=== PATIENT | male | born 1965 | race Hispanic/Latino ===

== ENCOUNTER 2016-05-29 20:30 | Emergency (ER) | payer SELFPAY ==
[2016-05-29] MEDS ORDERED: MOTRIN PO ONE (20:59)
--- NOTE | 2016-05-30 01:12 | Emergency Department Report ---
ED Lower Extremity HPI - General Chief Complaint: Wound/Laceration Stated Complaint: LACERATION TO TOE Time Seen by Provider: 05/30/16 01:11 Source: patient, family Mode of arrival: Ambulatory Limitations: No Limitations - History of Present Illness Initial Comments: Patient here reports that he has injury to left great toe. He said he was put in a bed together and the headboard fell on his left great toe. Reported male laceration and bleeding. Denies any fall or head injury. Pain to left great toe is 5 out of 10. His tetanus shot is up-to-date. Denies any numbness or tingling to toes. Patient has a history of diabetes. MD Complaint: foot injury (Left great toe injury) -: This evening Injury: Toes: Left ( great toe nail bed injury) Type of Injury: blunt Place: home Severity: moderate Severity scale (0 -10): 5 Improves With: cold therapy, other (dressing) Worsens With: weight bearing, movement, palpation Context: direct blow Associated Symptoms: swelling, ambulatory. denies: numbness, tingling Treatments Prior to Arrival: bandage - Related Data Home Medications Medication Instructions Recorded Confirmed Last Taken Fenofibrate 160 mg PO DAILY 05/29/16 05/29/16 Unknown Pantoprazole Sodium 40 mg PO DAILY 05/29/16 05/29/16 Unknown Pravastatin 10 mg PO DAILY 05/29/16 05/29/16 Unknown metFORMIN 1,000 mg PO DAILY 05/29/16 05/29/16 Unknown Previous Rx's Medication Instructions Recorded Last Taken Type Acetaminophen/Codeine 1 tab PO Q6H PRN #15 tab 05/30/16 Unknown Rx [Acetaminophen-Codeine #3 TAB] Allergies Allergy/AdvReac Type Severity Reaction Status Date / Time No Known Allergies Allergy Unverified 05/29/16 20:53 ED Review of Systems ROS: Stated complaint: LACERATION TO TOE Other details as noted in HPI Comment: All other systems reviewed and negative Constitutional: denies: chills, fever Respiratory: no symptoms reported Cardiovascular: denies: chest pain, palpitations, edema, syncope Gastrointestinal: denies: abdominal pain, nausea, vomiting Musculoskeletal: joint swelling, arthralgia (left great toe). denies: back pain Skin: denies: rash Neurological: abnormal gait (due to left great toe injury). denies: headache, numbness, paresthesias, confusion, vertigo ED Past Medical Hx - Past Medical History Previous Medical History?: Yes Hx Diabetes: Yes - Surgical History Past Surgical History?: Yes Hx Cholecystectomy: Yes Additional Surgical History: Right Ankle Surgery - Family History Family history: diabetes - Social History Smoking Status: Never Smoker Substance Use Type: None - Medications Home Medications: Home Medications Medication Instructions Recorded Confirmed Last Taken Type Fenofibrate 160 mg PO DAILY 05/29/16 05/29/16 Unknown History Pantoprazole Sodium 40 mg PO DAILY 05/29/16 05/29/16 Unknown History Pravastatin 10 mg PO DAILY 05/29/16 05/29/16 Unknown History metFORMIN 1,000 mg PO DAILY 05/29/16 05/29/16 Unknown History Acetaminophen/Codeine 1 tab PO Q6H PRN #15 tab 05/30/16 Unknown Rx [Acetaminophen-Codeine #3 TAB] ED Physical Exam - General Limitations: No Limitations General appearance: alert, in no apparent distress - Head Head exam: Present: atraumatic, normocephalic, normal inspection - Eye Eye exam: Present: normal appearance, PERRL, EOMI. Absent: periorbital swelling , periorbital tenderness Pupils: Present: normal accommodation - Neck Neck exam: Present: normal inspection, full ROM. Absent: tenderness, lymphadenopathy - Respiratory Respiratory exam: Present: normal lung sounds bilaterally. Absent: respiratory distress, chest wall tenderness - Cardiovascular Cardiovascular Exam: Present: regular rate, normal rhythm, normal heart sounds - GI/Abdominal GI/Abdominal exam: Present: soft, normal bowel sounds. Absent: distended, tenderness, guarding, rebound, rigid - Expanded Lower Extremity Exam Left Hip exam: Present: normal inspection, full ROM, pelvic stability. Absent: tenderness, swelling, abrasion, laceration, ecchymosis, deformity, crepidus, dislocation, erythema, external rotation, internal rotation, shortening Upper Leg exam: Present: normal inspection, full ROM. Absent: tenderness, swelling, abrasion, laceration, ecchymosis, deformity, crepidus, dislocation, erythema Knee exam: Present: normal inspection, full ROM, full knee extension. Absent: tenderness, swelling, abrasion, laceration, ecchymosis, deformity, crepidus, dislocation, erythema, effusion Lower Leg exam: Present: normal inspection, full ROM. Absent: tenderness, swelling, abrasion, laceration, ecchymosis, deformity, crepidus, dislocation, erythema, palpable cord, Joo's sign Ankle exam: Present: normal inspection, full ROM. Absent: tenderness, swelling , abrasion, laceration, ecchymosis, deformity, crepidus, dislocation, erythema Foot/Toe exam: Present: full ROM, tenderness (left great toe), swelling (left great toe), erythema (left great toe), nail avulsion (left great toe with nail avulsion). Absent: normal inspection, abrasion, laceration, ecchymosis, deformity, crepidus, dislocation, amputation, puncture wound, foreign body, calcaneal tenderness, tenderness at base of 5th metatarsal, subungual hematoma Neuro vascular tendon exam: Present: no vascular compromise. Absent: pulse deficit, abnormal cap refill, motor deficit, sensory deficit, tendon deficit, extremity cold to touch, pallor, abnormal 2-point discrimination, decreased fine /light touch, foot drop, peroneal nerve deficit, significant pain with passive ROM of distal joint Gait: Positive: observed and normal, observed and limited by pain - Back Exam Back exam: Present: normal inspection, full ROM. Absent: tenderness, CVA tenderness (R), CVA tenderness (L), muscle spasm, paraspinal tenderness, vertebral tenderness - Neurological Exam Neurological exam: Present: alert, oriented X3, abnormal gait (due to the left great toe contusion), reflexes normal. Absent: motor sensory deficit - Psychiatric Psychiatric exam: Present: normal affect, normal mood - Skin Skin exam: Present: warm, dry, erythema, abrasion - Expanded Skin Exam Expanded Type of lesion: Present: abrasion (wall abrasion) Distribution of rash: LLE (left great toe distal anterolateral at tuft) Description of rash: Present: tenderness, erythematous, swelling. Absent: discharge, fluctuant, indurated ED Course Vital Signs 05/29/16 05/29/16 05/30/16 20:44 22:15 01:32 Temperature 98.3 F Pulse Rate 75 Respiratory 18 18 18 Rate Blood Pressure 153/103 Blood Pressure 153/103 [Left] O2 Sat by Pulse 98 Oximetry 05/30/16 02:14 Temperature Pulse Rate Respiratory Rate Blood Pressure Blood Pressure 150/88 [Left] O2 Sat by Pulse Oximetry Vital Signs 05/29/16 05/29/16 05/30/16 20:44 22:15 01:32 Temperature 98.3 F Pulse Rate 75 Respiratory 18 18 18 Rate Blood Pressure 153/103 Blood Pressure 153/103 [Left] O2 Sat by Pulse 98 Oximetry 05/30/16 02:14 Temperature Pulse Rate Respiratory Rate Blood Pressure Blood Pressure 150/88 [Left] O2 Sat by Pulse Oximetry - Reevaluation(s) Reevaluation #1: 05/30/16 02:110 patient given Augmentin 875 mg in emergency room. Left foot soaked in normal saline and iodine. Cleansed and Neosporin ointment followed by dry gauze dressing placed the site. He was also given [place] 5/325 mg 2 tablets in emergency room for left great toe pain. ED Lower Extremity MDM - Radiology Data Radiology results: report reviewed X-ray of left great toe reveal no FX or dislocation. - Medical Decision Making ED course: She given [place] 5/325 2 tablets emergency room for left great toe pain. He was also given Augmentin 875 mg to start treatment for partial nail avulsion with abrasion to left great toe. Tetanus shot is up-to-date per patient. Discussed the patient that I'll refer him to a foot doctor in his discharge paperwork but patient said that he has on for and he sees 3-4 times a year due to his diabetes. I referred him to Dr. Flores and told them that he will need to call his doctor on Tuesday to schedule an appointment follow-up visit nail avulsion with abrasion and left great toe contusion. Patient was understanding of discharge instruction and discharged home with prescription for Tylenol No. 3. Discharged home with his . Critical care attestation.: If time is entered above; I have spent that time in minutes in the direct care of this critically ill patient, excluding procedure time. ED Disposition Clinical Impression: Arthralgia of left foot, Abrasion of foot or toe, left Contusion of great toe, left Qualifiers: Encounter type: initial encounter Damage to nail status: without damage Qualified Code(s): S90.112A - Contusion of left great toe without damage to nail , initial encounter Nail avulsion of toe Qualifiers: Encounter type: initial encounter Qualified Code(s): S91.209A - Unspecified open wound of unspecified toe(s) with damage to nail, initial encounter Disposition: DISCHARGED TO HOME OR SELFCARE Is pt being admited?: No Does the pt Need Aspirin: No Condition: Stable Instructions: Foot Contusion (ED), Abrasion (ED), Arthralgia (ED) Additional Instructions: You have an avulsion of the left great toeit means the nail bed has been partially removed due to trauma. 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 He was a diabetic and it was for infections to please make sure that you follow-up as soon as he can. Rest, ice, compress and elevate the area. Take medication as prescribed. Take antibiotic as prescribed and keep affected area clean and dry. Prescriptions: Acetaminophen/Codeine [Acetaminophen-Codeine #3 TAB] 1 tab PO Q6H PRN #15 tab PRN Reason: Pain Referrals: PRIMARY CARE, [Primary Care Provider] - 3-5 Days
[2016-05-30] MEDS ORDERED: TRIPLE ANTIBIOTIC TP ONE (01:13)
[2016-05-30] MEDS ORDERED: NORCO 5/325 PO ONE (01:13)
--- NOTE | 2016-05-30 01:28 | XRay Report ---
FINAL REPORT PROCEDURE: XR FOOT 3 LT TECHNIQUE: LEFT foot radiographs, AP, lateral, and oblique views. CPT 65783 HISTORY: Left great toe injury COMPARISON: No prior studies are available for comparison. FINDINGS: Fracture (s) and/or Dislocation(s): None . Alignment: Normal . Joint space(s): Mild narrowing of the joint spaces.. Soft tissues: Normal . Bone mineralization: Normal . Foreign bodies: None . Calcaneal spurring: Moderate spurring off calcaneus. IMPRESSION: No evidence of an acute fracture or dislocation. Mild arthritis..
[2016-05-30] MEDS ORDERED: AUGMENTIN 875 MG PO ONE (01:45)
[2016-05-30 02:15] VITALS: BP 150/88
== END 2016-05-30 02:46 | disposition home or self-care (01) ==
LOC: ED 20:30
DX: S91.202A Unspecified open wound of left great toe with damage to nail, initial encounter (principal); M79.672 Pain in left foot; E11.9 Type 2 diabetes mellitus without complications; Z90.49 Acquired absence of other specified parts of digestive tract; W20.8XXA Other cause of strike by thrown, projected or falling object, initial encounter; Y93.89 Activity, other specified; Y99.8 Other external cause status; Y92.098 Other place in other non-institutional residence as the place of occurrence of the external cause
CPT/HCPCS: A6250

== ENCOUNTER 2017-05-06 08:15 | Inpatient (IN) | payer OTHER ==
[2017-05-06] MEDS ORDERED: NACL 0.9% 1000 ML 1,000 ML IV ONE (09:06)
[2017-05-06 09:29] LABS: Basophils # (Auto) 0.1 K/mm3 (0.0-0.1); Basophils % (Auto) 1.4 % (0.0-1.8); Eosinophils # (Auto) 0.5 K/mm3 (0.0-0.4); Eosinophils % (Auto) 7.4 % (0.0-4.3); Hematocrit 40.4 % (35.5-45.6); Hemoglobin 13.8 gm/dl (11.8-15.2); Lymphocytes # (Auto) 1.9 K/mm3 (1.2-5.4); Lymphocytes % (Auto) 27.5 % (13.4-35.0); Mean Corpuscular HGB Conc 34 % (32-34); Mean Corpuscular Hemoglobin 29 pg (28-32); Mean Corpuscular Volume 84 fl (84-94); Monocytes # (Auto) 0.9 K/mm3 (0.0-0.8); Monocytes % (Auto) 13.2 % (0.0-7.3); Platelet Count 408 K/mm3 (140-440); Red Cell Distribution Width 13.6 % (13.2-15.2)
--- NOTE | 2017-05-06 09:32 | XRay Report ---
AP CHEST: HISTORY: Hypertension AP view of the chest demonstrates a normal mediastinal and cardiac contour with clear lungs and normal bony and soft tissue structures. IMPRESSION: Unremarkable AP chest.
--- NOTE | 2017-05-06 09:33 | XRay Report ---
RIGHT KNEE, 2 VIEWS History: Osteomyelitis, postoperative patient. Findings: No comparison. Right knee arthroplasty changes are identified. There is no evidence for loosening or infection of the prosthesis. No fracture or malalignment. There is mild diffuse subcutaneous edema which could be related to a cellulitis. Focal ulceration is suggested anterior and inferior to the patella. Impression: Soft tissue findings as described. Stable appearance of the right knee prosthesis.
[2017-05-06 09:46] LABS: Alanine Aminotransferase 18 units/L (7-56); Albumin 3.8 g/dL (3.9-5); BUN/Creatinine Ratio 19; Blood Urea Nitrogen 19 mg/dL (9-20); Calcium 9.4 mg/dL (8.4-10.2); Hemolysis Index 9
[2017-05-06 09:48] LABS: Bilirubin,Direct < 0.2 mg/dL (0-0.2)
[2017-05-06 09:52] LABS: INR 0.9 (0.87-1.13)
[2017-05-06 09:53] LABS: Partial Thromboplastin Time 32.6 Sec. (24.2-36.6)
[2017-05-06 10:02] LABS: Erythrocyte Sedimentation Rate 47 mm/Hr (0-20)
[2017-05-06 10:13] LABS: Bilirubin,Urine NEG (Negative); Blood,Urine NEG (Negative); Color,Urine Yellow (Yellow); Mucus,Urine FEW /HPF; Protein,Urine <15 mg/dL mg/dL (Negative); Urobilinogen,Urine < 2.0 mg/dL (<2.0)
--- NOTE | 2017-05-06 10:21 | Emergency Department Report ---
ED General Adult HPI - General Chief complaint: Extremity Injury, Lower Stated complaint: KNEE PAIN Time Seen by Provider: 05/06/17 08:55 Source: patient Mode of arrival: Ambulatory Limitations: No Limitations - History of Present Illness Initial comments: I received a call from the orthopedist concerning this patient this morning. He is preop for a debridement or washout procedure this afternoon. However, the orthopedist tells me that he is developing drainage from his knee and requires some staging in the emergency department. The patient is currently on vancomycin and Zosyn via PICC line since his total knee replacement in February. He arrives with a home health nurse I believe. He states that the green drainage started on Tuesday. The home health nurse stated that he also had some last week. The orthopedist is requesting that the patient be admitted by the hospitalist service for medical management. -: week(s), month(s) Location: right, lower extremity Severity scale (0 -10): 0 Quality: other (drainage not currently complaining of pain) Consistency: intermittent Improves with: none Worsens with: none Associated Symptoms: denies other symptoms, other (increasing redness of the anterior aspect of the knee) - Related Data Home Medications Medication Instructions Recorded Confirmed Last Taken Fenofibrate 160 mg PO DAILY 05/29/16 05/29/16 Unknown Pantoprazole Sodium 40 mg PO DAILY 05/29/16 05/29/16 Unknown Pravastatin 10 mg PO DAILY 05/29/16 05/29/16 Unknown metFORMIN 1,000 mg PO DAILY 05/29/16 05/29/16 Unknown Previous Rx's Medication Instructions Recorded Last Taken Type Acetaminophen/Codeine [Tylenol 1 tab PO Q6H PRN #15 tab 05/30/16 Unknown Rx /Codeine # 3 tab] Allergies Allergy/AdvReac Type Severity Reaction Status Date / Time codeine Allergy Unknown Verified 05/06/17 08:20 ED Review of Systems ROS: Stated complaint: KNEE PAIN Other details as noted in HPI Constitutional: denies: chills, fever Eyes: denies: eye pain, eye discharge, vision change ENT: denies: ear pain, throat pain Respiratory: denies: cough, shortness of breath, wheezing Cardiovascular: denies: chest pain, palpitations Endocrine: no symptoms reported Gastrointestinal: denies: abdominal pain, nausea, diarrhea Genitourinary: denies: urgency, dysuria Musculoskeletal: denies: back pain, joint swelling, arthralgia Skin: as per HPI, change in color, other. denies: rash, lesions Neurological: denies: headache, weakness, paresthesias Psychiatric: denies: anxiety, depression Hematological/Lymphatic: denies: easy bleeding, easy bruising ED Past Medical Hx - Past Medical History Hx Diabetes: Yes - Surgical History Hx Cholecystectomy: Yes Additional Surgical History: Right Ankle Surgery - Social History Smoking Status: Never Smoker Substance Use Type: None - Medications Home Medications: Home Medications Medication Instructions Recorded Confirmed Last Taken Type Fenofibrate 160 mg PO DAILY 05/29/16 05/29/16 Unknown History Pantoprazole Sodium 40 mg PO DAILY 05/29/16 05/29/16 Unknown History Pravastatin 10 mg PO DAILY 05/29/16 05/29/16 Unknown History metFORMIN 1,000 mg PO DAILY 05/29/16 05/29/16 Unknown History Acetaminophen/Codeine [Tylenol 1 tab PO Q6H PRN #15 tab 05/30/16 Unknown Rx /Codeine # 3 tab] ED Physical Exam - General Limitations: No Limitations General appearance: alert, in no apparent distress, obese - Head Head exam: Present: atraumatic, normocephalic - Eye Eye exam: Present: normal appearance. Absent: scleral icterus - ENT ENT exam: Present: mucous membranes moist - Neck Neck exam: Present: normal inspection. Absent: meningismus - Respiratory Respiratory exam: Present: normal lung sounds bilaterally. Absent: respiratory distress - Cardiovascular Cardiovascular Exam: Present: regular rate, normal rhythm. Absent: systolic murmur, diastolic murmur, rubs, gallop - GI/Abdominal GI/Abdominal exam: Present: soft, normal bowel sounds. Absent: distended, tenderness, guarding, rebound, rigid - Rectal Rectal exam: Present: deferred - Extremities Exam Extremities exam: Present: other (postsurgical changes. There is erythema and induration anterior knee. There is no active drainage at this juncture. However there is a gauze which shows evidence of some apparently serosanguineous -type material. I don't see any fluctuance or purulence.). Absent: calf tenderness - Back Exam Back exam: Present: normal inspection. Absent: CVA tenderness (R), CVA tenderness (L) - Neurological Exam Neurological exam: Present: alert, oriented X3, CN II-XII intact. Absent: motor sensory deficit - Psychiatric Psychiatric exam: Present: normal affect, normal mood - Skin Skin exam: Present: warm, dry, intact, normal color. Absent: rash ED Course Vital Signs 05/06/17 05/06/17 05/06/17 08:20 08:53 08:54 Temperature 97.5 F L 97.8 F Pulse Rate 92 H 99 H Respiratory 12 15 Rate Blood Pressure 141/72 Blood Pressure 128/59 [Left] O2 Sat by Pulse 96 97 Oximetry 05/06/17 05/06/17 05/06/17 09:00 09:15 09:30 Temperature Pulse Rate 91 H 84 88 Respiratory 13 12 19 Rate Blood Pressure 119/72 129/72 119/68 Blood Pressure [Left] O2 Sat by Pulse 97 97 96 Oximetry 05/06/17 05/06/17 09:45 10:01 Temperature Pulse Rate 88 91 H Respiratory 24 17 Rate Blood Pressure 122/59 128/68 Blood Pressure [Left] O2 Sat by Pulse 97 97 Oximetry - Reevaluation(s) Reevaluation #1: Discussed with Dr. Chavez. The patient will be admitted to the hospitalist service. Consult orthopedist. 05/06/17 10:28 ED Medical Decision Making - Lab Data Result diagrams: 05/06/17 09:19 05/06/17 09:19 Laboratory Results - last 24 hr 05/06/17 05/06/17 05/06/17 09:19 09:19 09:19 WBC 6.8 RBC 4.80 Hgb 13.8 Hct 40.4 MCV 84 MCH 29 MCHC 34 RDW 13.6 Plt Count 408 Lymph % (Auto) 27.5 [place] % (Auto) 13.2 H Eos % (Auto) 7.4 H Baso % (Auto) 1.4 Lymph # 1.9 [place] # 0.9 H Eos # 0.5 H Baso # 0.1 Seg Neutrophils % 50.5 Seg Neutrophils # 3.4 ESR 47 PT 12.6 INR 0.90 APTT 32.6 VBG pH Sodium 136 L Potassium 4.0 Chloride 97.1 L Carbon Dioxide 24 Anion Gap 19 BUN 19 Creatinine 1.0 Estimated GFR > 60 BUN/Creatinine Ratio 19 Glucose 138 H Ketones Quantitative Lactic Acid Calcium 9.4 Total Bilirubin 0.30 Direct Bilirubin < 0.2 AST 20 ALT 18 Alkaline Phosphatase 66 C-Reactive Protein 1.30 Total Protein 7.6 Albumin 3.8 L Albumin/Globulin Ratio 1.0 Urine Color Urine Turbidity Urine pH Ur Specific [place] Urine Protein Urine Glucose (UA) Urine Ketones Urine Blood Urine Nitrite Urine Bilirubin Urine Urobilinogen Ur Leukocyte Esterase Urine WBC (Auto) Urine RBC (Auto) Urine Mucus 05/06/17 05/06/17 05/06/17 09:19 09:19 09:19 WBC RBC Hgb Hct MCV MCH MCHC RDW Plt Count Lymph % (Auto) [place] % (Auto) Eos % (Auto) Baso % (Auto) Lymph # [place] # Eos # Baso # Seg Neutrophils % Seg Neutrophils # ESR PT INR APTT VBG pH 7.395 Sodium Potassium Chloride Carbon Dioxide Anion Gap BUN Creatinine Estimated GFR BUN/Creatinine Ratio Glucose Ketones Quantitative Negative Lactic Acid 0.80 Calcium Total Bilirubin Direct Bilirubin AST ALT Alkaline Phosphatase C-Reactive Protein Total Protein Albumin Albumin/Globulin Ratio Urine Color Urine Turbidity Urine pH Ur Specific [place] Urine Protein Urine Glucose (UA) Urine Ketones Urine Blood Urine Nitrite Urine Bilirubin Urine Urobilinogen Ur Leukocyte Esterase Urine WBC (Auto) Urine RBC (Auto) Urine Mucus 05/06/17 10:00 WBC RBC Hgb Hct MCV MCH MCHC RDW Plt Count Lymph % (Auto) [place] % (Auto) Eos % (Auto) Baso % (Auto) Lymph # [place] # Eos # Baso # Seg Neutrophils % Seg Neutrophils # ESR PT INR APTT VBG pH Sodium Potassium Chloride Carbon Dioxide Anion Gap BUN Creatinine Estimated GFR BUN/Creatinine Ratio Glucose Ketones Quantitative Lactic Acid Calcium Total Bilirubin Direct Bilirubin AST ALT Alkaline Phosphatase C-Reactive Protein Total Protein Albumin Albumin/Globulin Ratio Urine Color Yellow Urine Turbidity Clear Urine pH 6.0 Ur Specific [place] 1.016 Urine Protein <15 mg/dl Urine Glucose (UA) Neg Urine Ketones Neg Urine Blood Neg Urine Nitrite Neg Urine Bilirubin Neg Urine Urobilinogen < 2.0 Ur Leukocyte Esterase Neg Urine WBC (Auto) 1.0 Urine RBC (Auto) 1.0 Urine Mucus Few - EKG Data -: EKG Interpreted by [place] EKG shows normal: sinus rhythm, axis, intervals, QRS complexes, ST-T waves - EKG Data Interpretation: other (low voltage poor R-wave progression possibly related to hepatitis. Slightly prolonged [place] interval first degree AV block) - Radiology Data Radiology results: report reviewed Critical care attestation.: If time is entered above; I have spent that time in minutes in the direct care of this critically ill patient, excluding procedure time. ED Disposition Clinical Impression: Cellulitis of right knee, Insulin dependent diabetes mellitus Disposition: OP ADMIT IP TO THIS HOSP Is pt being admited?: Yes Does the pt Need Aspirin: No (hold now patient nothing by mouth for surgery) Condition: Stable Instructions: Diabetes Mellitus Type 2 in Adults (ED) Referrals: PRIMARY CARE, [Primary Care Provider] - 3-5 Days Time of Disposition: 10:31
[2017-05-06] MEDS ORDERED: ZOFRAN IV PRN (10:42)
--- NOTE | 2017-05-06 10:42 | Anesthesia Day of Surgery ---
Anesthesia Day of Surgery - Day of Surgery Patient Examined: Yes Patient H&P Reviewed: Yes Patient is NPO: Yes
--- NOTE | 2017-05-06 10:42 | Anesthesia Consultation ---
Anesthesia Consult and Med Hx - Airway Anesthetic Teeth Evaluation: Good ROM Head & Neck: Adequate Mental/Hyoid Distance: Adequate Mallampati Class: Class I - Pulmonary Exam CTA: Yes - Cardiac Exam Cardiac Exam: RRR - Pre-Operative Health Status ASA Pre-Surgery Classification: ASA3 Proposed Anesthetic Plan: General
[2017-05-06] MEDS ORDERED: NACL 0.9% 1000 ML 1,000 ML IV SCH (11:00)
[2017-05-06] MEDS ORDERED: NACL 0.9% 1000 ML 1,000 ML ONE (11:38)
[2017-05-06] MEDS ORDERED: VANCOMYCIN/NS 1 GM/250 ML 1 GM/250 ML BAG IV SCH ×2 (12:00→14:00)
[2017-05-06] MEDS ORDERED: VANCOMYCIN/0.45 NS 1 GM/250 ML 1 GM/250 ML BAG IV NR (12:00)
[2017-05-06] MEDS ORDERED: DILAUDID ONE ×2 (12:01→14:44)
[2017-05-06] MEDS ORDERED: DIPRIVAN 10 MG/ML IV ONE (12:01)
[2017-05-06] MEDS ORDERED: XYLOCAINE MPF 2% ONE (12:03)
[2017-05-06] MEDS ORDERED: REGLAN ONE (12:49)
[2017-05-06] MEDS ORDERED: ZOFRAN ONE (12:49)
[2017-05-06] MEDS ORDERED: SUBLIMAZE ONE (12:50)
[2017-05-06] MEDS ORDERED: ULTRAM PO PRN (13:49)
[2017-05-06] MEDS ORDERED: ZOSYN/NS 3.375GM/50ML 3.375 GM/50 ML BAG IV SCH (14:00)
[2017-05-06] MEDS: DILAUDID IV PRN ×2 (14:44→15:00)
[2017-05-06] MEDS ORDERED: D50W (25GM) Syringe IV PRN (15:56)
--- NOTE | 2017-05-06 15:59 | History and Physical Report ---
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 Freed, stating he needs to come here to do surgery for knee infection. Patient has noticed more draining, tenderness, constant moderately intense pain right knee over last couple days without aggravating or relieving factors. Past medical history: The patient is currently on vancomycin and Zosyn via PICC line since his total knee replacement in February. He arrives with a home health nurse I believe. He states that the green drainage started on Tuesday. The home health nurse stated that he also had some last week. The orthopedist is requesting that the patient be admitted by the hospitalist service for medical management. Past medical history: As HPI, also DKA in the past, buttock infection with abscess Past surgical history: Cholecystectomy last year, right ankle bone spur removal , right Botox abscess drained and the right total knee replacement Social history: He denies any tobacco use or alcohol abuse or drug abuse Family history: Mother and father had diabetes mellitus they are ROS: Constitutional: denies: fever ENT: denies: throat or neck pain Respiratory: denies: cough, shortness of breath Cardiovascular: denies: chest pain Endocrine: denies unexplained weight loss or gain Gastrointestinal: denies: abdominal pain, nausea Genitourinary: denies: dysuria Rectal: denies no incontinence, no bleeding, no itching, no discharge Musculoskeletal: Positive swelling, myaglia, muscle weakness Skin: denies: rash Neurological: denies: headache Hematological/Lymphatic: denies: easy bleeding or easy bruising Allergic/Immunologic: no urticaria, no allergic rhinitis, no anaphylaxis Psych: denies sadness or hopelessness, SI/HI Medications and Allergies Allergies Allergy/AdvReac Type Severity Reaction Status Date / Time codeine Allergy Unknown Verified 05/06/17 08:20 Home Medications Medication Instructions Recorded Confirmed Last Taken Type Fenofibrate 160 mg PO DAILY 05/29/16 05/29/16 05/05/17 History Pantoprazole Sodium 40 mg PO DAILY 05/29/16 05/29/16 05/05/17 History Pravastatin 10 mg PO DAILY 05/29/16 05/29/16 05/05/17 History metFORMIN 1,000 mg PO DAILY 05/29/16 05/29/16 05/05/17 History RX: Acetaminophen/Codeine [Tylenol 1 tab PO Q6H PRN #15 tab 05/30/16 Unknown Rx /Codeine # 3 tab] Lisinopril [Prinivil] 10 mg PO DAILY 05/06/17 05/06/17 05/05/17 History RX: Pioglitazone [Actos] 15 mg 05/06/17 05/05/17 History glipiZIDE [Glipizide] 10 mg PO BID 05/06/17 05/06/17 05/05/17 History Active Meds: Active Medications Aspirin (Ecotrin) 325 mg PO BID@0800,2000 [facility] Celecoxib (Celebrex) 200 mg PO BID [facility] Dextrose (D50w (25gm) Syringe) 50 ml IV PRN PRN PRN Reason: Hypoglycemia Piperacillin Sod/Tazobactam Sod (Zosyn/Ns 4.5gm/100ml) 4.5 gm in 100 mls @ 100 mls/hr IV Q8H [facility] Vancomycin HCl 1,500 mg/ (Sodium Chloride) 515 mls @ 333.333 mls/hr IV Q12H [facility] Insulin Human Lispro (Humalog) 0 unit SUB-Q ACHS [facility]; Protocol Morphine Sulfate (Morphine) 4 mg IV Q4H PRN PRN Reason: Pain , Severe (7-10) Pregabalin (Lyrica) 75 mg PO BID [facility] Tramadol HCl (Ultram) 50 mg PO Q6H PRN PRN Reason: Pain, Moderate (4-6) Vancomycin HCl (Vancomycin Pharmacy To Dose) 1 each IV PKCONSULT [facility]; Protocol Exam - Physical Exam Narrative exam: GEN: WDWN, NAD, AWAKE, ALERT, ORIENTATED 3 HEENT: NCAT, EOMI, PERRL, OP Clear NECK: supple, no adenopathy, no thyromegaly, no JVD CVS/HEART: RRR, NORMAL S1S2, pulses present bilaterally CHEST/LUNGS: CTA B, Symmetrical chest expansion, good air entry bilaterally GI/Abdomen: soft, NTND, good bowel sounds, no guarding or rebound /Bladder: no suprapubic tenderness, no CVA or paraspinal tenderness EXT/Skin: right knee surg dsg clean dry intact MSK: FROM x 3 except right leg in an immobilizer Neuro: CN 2-12 grossly intact, except hearing and speech, no new focal deficits Psych: calm - Constitutional Vitals: Temp Pulse Resp BP Pulse Ox 97.8 F 90 15 143/68 96 05/06/17 14:15 05/06/17 14:25 05/06/17 15:00 05/06/17 14:25 05/06/17 14:25 Results - Labs CBC & Chem 7: 05/06/17 09:19 05/06/17 09:19 Labs: Abnormal lab results 05/06/17 05/06/17 05/06/17 Range/Units 09:19 09:19 09:58 [place] % (Auto) 13.2 H (0.0-7.3) % Eos % (Auto) 7.4 H (0.0-4.3) % [place] # 0.9 H (0.0-0.8) K/mm3 Eos # 0.5 H (0.0-0.4) K/mm3 Sodium 136 L (137-145) mmol/L Chloride 97.1 L (98-107) mmol/L Glucose 138 H (75-100) mg/dL POC Glucose 109 H (70-105) Albumin 3.8 L (3.9-5) g/dL 05/06/17 Range/Units 14:45 [place] % (Auto) (0.0-7.3) % Eos % (Auto) (0.0-4.3) % [place] # (0.0-0.8) K/mm3 Eos # (0.0-0.4) K/mm3 Sodium (137-145) mmol/L Chloride (98-107) mmol/L Glucose (75-100) mg/dL POC Glucose 125 H (70-105) Albumin (3.9-5) g/dL Assessment and Plan Patient is a 51-year-old man with a history of Type 2 insulin-dependent diabetes mellitus,, 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 Freed to come here for surgery -Right knee septic arthritis s/p washout: continue iv vancomycin, surgical ctx -DM type 2: ssi, start diet -HTM: monitor closely, low salt diet
[2017-05-06] MEDS ORDERED: VANCOMYCIN PHARMACY TO DOSE IV SCH (16:00)
[2017-05-06] MEDS: MORPHINE IV PRN ×2 (16:43→22:48)
[2017-05-06] MEDS: ZOSYN/NS 4.5GM/100ML 4.5 GM/100 ML VIAL IV SCH (16:43)
[2017-05-06] MEDS: HumaLOG SUB-Q SCH ×2 (16:49→22:49)
--- NOTE | 2017-05-06 17:41 | Post Anesthesia Evaluation ---
- Post Anesthesia Evaluation Patient Participated: Yes Airway Patent: Yes Stable Respiratory Function: Yes Nausea/Vomiting: No Temp > 96.8F: Yes Pain Manageable: Yes Adequeate Hydration: Yes Anesthesia Complications: No Block Receding Appropriately: Not Applicable
[2017-05-06] MEDS ORDERED: TORADOL IV SCH (18:00)
--- NOTE | 2017-05-06 19:25 | Operative Report ---
SURGEON: Xavier Mora M.D. ENERGY PROJECT ENGINEER: Kelvin Bhatti, operative tech. PREOPERATIVE DIAGNOSIS: Wound drainage of lower part of the knee, status post total knee replacement, left side. POSTOPERATIVE DIAGNOSIS: Wound drainage of lower part of the knee, status post total knee replacement, left side, with minimal hematoma collection on the proximal medial tibia. PROCEDURES PERFORMED: Open exploration, right knee, with irrigation, debridement, and wound closure. BLOOD LOSS: Minimal. COMPLICATIONS: None. SPECIMEN: Removed tissue for culture and sensitivity, culture swab for Gram stain, culture and sensitivity, draining sinus tissue for pathology. BRIEF HISTORY: The patient had a knee replacement for severe advanced arthritis, status post failed conservative treatment. He had severe advanced osteoarthritis, extremely advanced, extremely deformed, and stiff knee with hardware in situ, had a total knee replacement. We did great with some postoperatively. He had some redness and cellulitis with some minimal bruise on the lower part of the knee. Eventually a day ago, he started having minimal drainage. He was on IV antibiotics. The drainage persisted and then decided to have an open wound exploration and procedure. The risks, benefit discussed, no guarantee expressed. All the questions were answered, informed consent obtained. DETAILS OF THE OPERATIVE REPORT: The patient was taken to the operating room. After smooth general endotracheal anesthesia, all the bony points were carefully padded, placed supine on the operating table. Thigh tourniquet was placed. Right knee and right lower extremity prepped and draped in sterile fashion. Leg elevated, tourniquet inflated to 350 mmHg. No Esmarch was used. The patient is on the scheduled antibiotic already, but he also had IV vancomycin before the procedure, [address] he had two small draining punctured wound and a small draining area was opened and draining area was excised, and the tissue was sent for pathology. The incision was carried down deep to subcutaneous tissue and the fascia was exposed. There was minimal weak soft tissue on the lower part of the incision. At the level of proximal medial tibia, there was significant amount of healing already happened. At the level of proximal medial tibial plateau, there was a small area of fluid collection and space in the proximal medial tibia where he had the previous surgery, had a previous interference screw was placed. No pus was delivered. There was no infected looking tissue as such; however, some of the tissues were friable and were sent for culture and sensitivity. Total washing and irrigation was performed. The wound was explored a little more proximally to see if there is any communication to the joint. We noticed that there was no intra-articular communication. The arthrotomy was completely healed and there was a soft tissue and all the way sealed all the way proximal medial tibia and there was no intraarticular communication. There just a small area of on the proximal medial tibia in the region where he had previous ACL tibial screw surgery where there was hardly much tissue adhered to the bone. So, thorough washing was performed. Curettes were used to do thorough debridement. Washing was performed with antibiotic normal saline about five the 2 to 5 liters and also, thorough washing was performed with a liter and a half to 2 liters of Clorpactin. Following that, a 1000 mL bag of normal saline was used to thorough wash it. Tourniquet released. Hemostasis was achieved. No active bleeder as such. Closure was commenced. There was no need to go intraarticularly as there was no rent in the capsule. There was no rent or no communication at all to the intra-articular joint. Thorough washing was performed and the closure was commenced and closed with #1 PDS and 0 PDS and subcutaneous tissues closed with 2-0 PDS. Distally, the wound was closed with #2 nylon in a horizontal mattress fashion and closure was proximally, it was also commenced with Monocryl where it was good approximation. This skin on the lower end had little bruised up and from the past and that is why we used a stitch on the lower end to get a better eversion of the margin. The patient tolerated the procedure well. Dressing was done with 4 x 4s, ABD, Kerlix, and Emery wrap. A knee immobilizer applied. The patient tolerated the procedure, returned to the recovery room in stable condition. Sponge and needle count was correct. JOB# [id number] SK/MINH
[2017-05-06] MEDS: ECOTRIN PO SCH (19:59)
[2017-05-06] MEDS: LYRICA PO SCH (22:50)
[2017-05-06] MEDS: VANCOMYCIN 1,500 MG in NACL 0.9% 500 ML 500 ML IV SCH (23:00)
[2017-05-07] MEDS: ZOSYN/NS 4.5GM/100ML 4.5 GM/100 ML VIAL IV SCH ×3 (00:51→16:39)
[2017-05-07] MEDS: MORPHINE IV PRN ×3 (05:23→19:45)
[2017-05-07 06:19] LABS: Hematocrit 35.9 % (35.5-45.6); Hemoglobin 12.5 gm/dl (11.8-15.2); Mean Corpuscular HGB Conc 35 % (32-34); Mean Corpuscular Hemoglobin 29 pg (28-32); Mean Corpuscular Volume 84 fl (84-94); Platelet Count 390 K/mm3 (140-440); Red Blood Count 4.25 M/mm3 (3.65-5.03); Red Cell Distribution Width 13.9 % (13.2-15.2)
[2017-05-07 06:34] LABS: BUN/Creatinine Ratio 15; Blood Urea Nitrogen 17 mg/dL (9-20); Calcium 8.6 mg/dL (8.4-10.2); Hemolysis Index 4
[2017-05-07] MEDS: HumaLOG SUB-Q SCH ×4 (08:38→22:54)
[2017-05-07] MEDS: ECOTRIN PO SCH ×2 (09:01→19:44)
[2017-05-07] MEDS: LYRICA PO SCH ×2 (10:25→21:12)
[2017-05-07] MEDS: VANCOMYCIN 1,500 MG in NACL 0.9% 500 ML 500 ML IV SCH ×2 (13:38→23:08)
--- NOTE | 2017-05-07 13:51 | Progress Note ---
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 Freed to come here for surgery -Right knee septic arthritis s/p washout: continue iv vancomycin, surgical ctx -DM type 2: ssi, start diet -HTM: monitor closely, low salt diet Awaiting cultures, continue iv vancomycin with monitoring History Interval history: Patient was seen and examined. Follow-up on current diagnosis. Overnight uneventful. Patient denies any chest pain, shortness breath, nausea/vomiting or severe headaches. Imaging, nursing note, chart, labs and old chart reviewed. Discussed with patient. Hospitalist Physical - Physical exam Narrative exam: GEN: WDWN, NAD, AWAKE, ALERT, ORIENTATED 3 HEENT: NCAT, EOMI, PERRL, OP Clear NECK: supple, no adenopathy, no thyromegaly, no JVD CVS/HEART: RRR, NORMAL S1S2, pulses present bilaterally CHEST/LUNGS: CTA B, Symmetrical chest expansion, good air entry bilaterally GI/Abdomen: soft, NTND, good bowel sounds, no guarding or rebound /Bladder: no suprapubic tenderness, no CVA or paraspinal tenderness EXT/Skin: right knee surg dsg clean dry intact MSK: FROM x 3 except right leg in an immobilizer Neuro: CN 2-12 grossly intact, except hearing and speech, no new focal deficits Psych: calm - Constitutional Vitals: Temp Pulse Resp BP Pulse Ox 98.1 F 83 20 102/40 95 05/07/17 07:42 05/07/17 07:42 05/07/17 07:42 05/07/17 07:42 05/07/17 07:42 Results - Labs CBC & Chem 7: 05/07/17 Unknown 05/07/17 Unknown Labs: Laboratory Last Values WBC 6.1 K/mm3 (4.5-11.0) 05/07/17 Unknown RBC 4.25 M/mm3 (3.65-5.03) 05/07/17 Unknown Hgb 12.5 gm/dl (11.8-15.2) 05/07/17 Unknown Hct 35.9 % (35.5-45.6) 05/07/17 Unknown MCV 84 fl (84-94) 05/07/17 Unknown MCH 29 pg (28-32) 05/07/17 Unknown MCHC 35 % (32-34) H 05/07/17 Unknown RDW 13.9 % (13.2-15.2) 05/07/17 Unknown Plt Count 390 K/mm3 (140-440) 05/07/17 Unknown Lymph % (Auto) 27.5 % (13.4-35.0) 05/06/17 09:19 [place] % (Auto) 13.2 % (0.0-7.3) H 05/06/17 09:19 Eos % (Auto) 7.4 % (0.0-4.3) H 05/06/17 09:19 Baso % (Auto) 1.4 % (0.0-1.8) 05/06/17 09:19 Lymph # 1.9 K/mm3 (1.2-5.4) 05/06/17 09:19 [place] # 0.9 K/mm3 (0.0-0.8) H 05/06/17 09:19 Eos # 0.5 K/mm3 (0.0-0.4) H 05/06/17 09:19 Baso # 0.1 K/mm3 (0.0-0.1) 05/06/17 09:19 Seg Neutrophils % 50.5 % (40.0-70.0) 05/06/17 09:19 Seg Neutrophils # 3.4 K/mm3 (1.8-7.7) 05/06/17 09:19 ESR 47 mm/Hr (0-20) 05/06/17 09:19 PT 12.6 Sec. (12.2-14.9) 05/06/17 09:19 INR 0.90 (0.87-1.13) 05/06/17 09:19 APTT 32.6 Sec. (24.2-36.6) 05/06/17 09:19 VBG pH 7.395 (7.320-7.420) 05/06/17 09:19 Sodium 137 mmol/L (137-145) 05/07/17 Unknown Potassium 4.2 mmol/L (3.6-5.0) 05/07/17 Unknown Chloride 98.6 mmol/L (98-107) 05/07/17 Unknown Carbon Dioxide 25 mmol/L (22-30) 05/07/17 Unknown Anion Gap 18 mmol/L 05/07/17 Unknown BUN 17 mg/dL (9-20) 05/07/17 Unknown Creatinine 1.1 mg/dL (0.8-1.5) 05/07/17 Unknown Estimated GFR > 60 ml/min 05/07/17 Unknown BUN/Creatinine Ratio 15 % 05/07/17 Unknown Glucose 188 mg/dL (75-100) H 05/07/17 Unknown POC Glucose 278 (70-105) H 05/07/17 11:23 Ketones Quantitative Negative (Negative) 05/06/17 09:19 Lactic Acid 0.80 mmol/L (0.7-2.0) 05/06/17 09:19 Calcium 8.6 mg/dL (8.4-10.2) 05/07/17 Unknown Magnesium 1.90 mg/dL (1.7-2.3) 05/07/17 Unknown Total Bilirubin 0.30 mg/dL (0.1-1.2) 05/06/17 09:19 Direct Bilirubin < 0.2 mg/dL (0-0.2) 05/06/17 09:19 AST 20 units/L (5-40) 05/06/17 09:19 ALT 18 units/L (7-56) 05/06/17 09:19 Alkaline Phosphatase 66 units/L (35-129) 05/06/17 09:19 C-Reactive Protein 1.30 mg/dL (0.00-1.30) 05/06/17 09:19 Total Protein 7.6 g/dL (6.3-8.2) 05/06/17 09:19 Albumin 3.8 g/dL (3.9-5) L 05/06/17 09:19 Albumin/Globulin Ratio 1.0 % 05/06/17 09:19 Urine Color Yellow (Yellow) 05/06/17 10:00 Urine Turbidity Clear (Clear) 05/06/17 10:00 Urine pH 6.0 (5.0-7.0) 05/06/17 10:00 Ur Specific [place] 1.016 (1.003-1.030) 05/06/17 10:00 Urine Protein <15 mg/dl mg/dL (Negative) 05/06/17 10:00 Urine Glucose (UA) Neg mg/dL (Negative) 05/06/17 10:00 Urine Ketones Neg mg/dL (Negative) 05/06/17 10:00 Urine Blood Neg (Negative) 05/06/17 10:00 Urine Nitrite Neg (Negative) 05/06/17 10:00 Urine Bilirubin Neg (Negative) 05/06/17 10:00 Urine Urobilinogen < 2.0 mg/dL (<2.0) 05/06/17 10:00 Ur Leukocyte Esterase Neg (Negative) 05/06/17 10:00 Urine WBC (Auto) 1.0 /HPF (0.0-6.0) 05/06/17 10:00 Urine RBC (Auto) 1.0 /HPF (0.0-6.0) 05/06/17 10:00 Urine Mucus Few /HPF 05/06/17 10:00
[2017-05-07] MEDS ORDERED: PRAVASTATIN 10 MG PO SCH (17:30)
[2017-05-07] MEDS: PRAVACHOL PO SCH (21:12)
--- NOTE | 2017-05-07 22:01 | Progress Note ---
Subjective Date of service: 05/07/17 Interval history: pod1, patient doing good, no comaplints dressing dry calf soft NT NVI No soakage in dressing pain under control avss, nvi under care of hospitalist no growth so far on cx. Continue Abx until final cx are back ID consult Objective Vital signs: Vital Signs - 12hr 05/07/17 05/07/17 05/07/17 15:46 19:45 21:13 Temperature 98.2 F Respiratory 20 20 20 Rate Blood Pressure 112/55 - Labs CBC & BMP: 05/07/17 Unknown 05/07/17 Unknown Labs: Abnormal lab results 05/07/17 05/07/17 05/07/17 Range/Units 06:47 11:23 16:14 MCHC (32-34) % Glucose (75-100) mg/dL POC Glucose 171 H 278 H 204 H (70-105) 05/07/17 05/07/17 05/07/17 Range/Units 21:03 Unknown Unknown MCHC 35 H (32-34) % Glucose 188 H (75-100) mg/dL POC Glucose 263 H (70-105)
[2017-05-07] MEDS: LANTUS SUB-Q SCH (22:53)
[2017-05-08] MEDS: ZOSYN/NS 4.5GM/100ML 4.5 GM/100 ML VIAL IV SCH ×4 (00:50→23:44)
[2017-05-08] MEDS: MORPHINE IV PRN ×4 (02:50→21:30)
[2017-05-08 07:08] LABS: Hemoglobin 12.9 gm/dl (11.8-15.2); Mean Corpuscular HGB Conc 35 % (32-34); Mean Corpuscular Hemoglobin 29 pg (28-32); Mean Corpuscular Volume 83 fl (84-94); Red Blood Count 4.48 M/mm3 (3.65-5.03); Red Cell Distribution Width 13.6 % (13.2-15.2)
[2017-05-08 07:19] LABS: BUN/Creatinine Ratio 17; Blood Urea Nitrogen 17 mg/dL (9-20); Calcium 8.8 mg/dL (8.4-10.2); Hemolysis Index 5
[2017-05-08 07:42] LABS: Platelet Count 337 K/mm3 (140-440)
[2017-05-08] MEDS: HumaLOG SUB-Q SCH ×4 (08:31→21:55)
[2017-05-08] MEDS: ECOTRIN PO SCH ×2 (08:32→21:30)
[2017-05-08] MEDS: PROTONIX PO SCH (09:54)
[2017-05-08] MEDS: LYRICA PO SCH ×2 (09:54→21:29)
[2017-05-08] MEDS ORDERED: NON-FORMULARY (Pantoprazole Sodium 40 MG) PO SCH (10:00)
--- NOTE | 2017-05-08 11:33 | Progress Note ---
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 Freed to come here for surgery -Right knee septic arthritis s/p washout: continue iv vancomycin, surgical ctx -DM type 2: ssi, start diet -HTM: monitor closely, low salt diet Awaiting cultures, continue iv vancomycin with monitoring ID consult available tomorrow. Patient already has a picc line from outside hospital. History Interval history: Patient was seen and examined. Follow-up on current diagnosis of right knee pains which has improved. Overnight uneventful. Patient denies any chest pain , shortness breath, nausea/vomiting or severe headaches. Imaging, nursing note , chart, labs and old chart reviewed. Discussed with patient. Hospitalist Physical - Physical exam Narrative exam: GEN: WDWN, NAD, AWAKE, ALERT, ORIENTATED 3 HEENT: NCAT, EOMI, PERRL, OP Clear NECK: supple, no adenopathy, no thyromegaly, no JVD CVS/HEART: RRR, NORMAL S1S2, pulses present bilaterally CHEST/LUNGS: CTA B, Symmetrical chest expansion, good air entry bilaterally GI/Abdomen: soft, NTND, good bowel sounds, no guarding or rebound /Bladder: no suprapubic tenderness, no CVA or paraspinal tenderness EXT/Skin: right knee surg dsg clean dry intact MSK: FROM x 3 except right leg in an immobilizer Neuro: CN 2-12 grossly intact, except hearing and speech, no new focal deficits Psych: calm - Constitutional Vitals: Temp Pulse Resp BP Pulse Ox 98.5 F 80 20 125/73 96 05/08/17 08:08 05/07/17 22:51 05/08/17 08:08 05/08/17 08:08 05/07/17 22:51 Results - Labs CBC & Chem 7: 05/08/17 06:20 05/08/17 06:20 Labs: Laboratory Last Values WBC 7.5 K/mm3 (4.5-11.0) 05/08/17 06:20 RBC 4.48 M/mm3 (3.65-5.03) 05/08/17 06:20 Hgb 12.9 gm/dl (11.8-15.2) 05/08/17 06:20 Hct 37.0 % (35.5-45.6) 05/08/17 06:20 MCV 83 fl (84-94) L 05/08/17 06:20 MCH 29 pg (28-32) 05/08/17 06:20 MCHC 35 % (32-34) H 05/08/17 06:20 RDW 13.6 % (13.2-15.2) 05/08/17 06:20 Plt Count 337 K/mm3 (140-440) 05/08/17 06:20 Lymph % (Auto) 27.5 % (13.4-35.0) 05/06/17 09:19 [place] % (Auto) 13.2 % (0.0-7.3) H 05/06/17 09:19 Eos % (Auto) 7.4 % (0.0-4.3) H 05/06/17 09:19 Baso % (Auto) 1.4 % (0.0-1.8) 05/06/17 09:19 Lymph # 1.9 K/mm3 (1.2-5.4) 05/06/17 09:19 [place] # 0.9 K/mm3 (0.0-0.8) H 05/06/17 09:19 Eos # 0.5 K/mm3 (0.0-0.4) H 05/06/17 09:19 Baso # 0.1 K/mm3 (0.0-0.1) 05/06/17 09:19 Seg Neutrophils % 50.5 % (40.0-70.0) 05/06/17 09:19 Seg Neutrophils # 3.4 K/mm3 (1.8-7.7) 05/06/17 09:19 ESR 47 mm/Hr (0-20) 05/06/17 09:19 PT 12.6 Sec. (12.2-14.9) 05/06/17 09:19 INR 0.90 (0.87-1.13) 05/06/17 09:19 APTT 32.6 Sec. (24.2-36.6) 05/06/17 09:19 VBG pH 7.395 (7.320-7.420) 05/06/17 09:19 Sodium 136 mmol/L (137-145) L 05/08/17 06:20 Potassium 4.1 mmol/L (3.6-5.0) 05/08/17 06:20 Chloride 98.3 mmol/L (98-107) 05/08/17 06:20 Carbon Dioxide 24 mmol/L (22-30) 05/08/17 06:20 Anion Gap 18 mmol/L 05/08/17 06:20 BUN 17 mg/dL (9-20) 05/08/17 06:20 Creatinine 1.0 mg/dL (0.8-1.5) 05/08/17 06:20 Estimated GFR > 60 ml/min 05/08/17 06:20 BUN/Creatinine Ratio 17 % 05/08/17 06:20 Glucose 240 mg/dL (75-100) H 05/08/17 06:20 POC Glucose 225 (70-105) H 05/08/17 06:20 Ketones Quantitative Negative (Negative) 05/06/17 09:19 Lactic Acid 0.80 mmol/L (0.7-2.0) 05/06/17 09:19 Calcium 8.8 mg/dL (8.4-10.2) 05/08/17 06:20 Magnesium 1.90 mg/dL (1.7-2.3) 05/07/17 Unknown Total Bilirubin 0.30 mg/dL (0.1-1.2) 05/06/17 09:19 Direct Bilirubin < 0.2 mg/dL (0-0.2) 05/06/17 09:19 AST 20 units/L (5-40) 05/06/17 09:19 ALT 18 units/L (7-56) 05/06/17 09:19 Alkaline Phosphatase 66 units/L (35-129) 05/06/17 09:19 C-Reactive Protein 1.30 mg/dL (0.00-1.30) 05/06/17 09:19 Total Protein 7.6 g/dL (6.3-8.2) 05/06/17 09:19 Albumin 3.8 g/dL (3.9-5) L 05/06/17 09:19 Albumin/Globulin Ratio 1.0 % 05/06/17 09:19 Urine Color Yellow (Yellow) 05/06/17 10:00 Urine Turbidity Clear (Clear) 05/06/17 10:00 Urine pH 6.0 (5.0-7.0) 05/06/17 10:00 Ur Specific [place] 1.016 (1.003-1.030) 05/06/17 10:00 Urine Protein <15 mg/dl mg/dL (Negative) 05/06/17 10:00 Urine Glucose (UA) Neg mg/dL (Negative) 05/06/17 10:00 Urine Ketones Neg mg/dL (Negative) 05/06/17 10:00 Urine Blood Neg (Negative) 05/06/17 10:00 Urine Nitrite Neg (Negative) 05/06/17 10:00 Urine Bilirubin Neg (Negative) 05/06/17 10:00 Urine Urobilinogen < 2.0 mg/dL (<2.0) 05/06/17 10:00 Ur Leukocyte Esterase Neg (Negative) 05/06/17 10:00 Urine WBC (Auto) 1.0 /HPF (0.0-6.0) 05/06/17 10:00 Urine RBC (Auto) 1.0 /HPF (0.0-6.0) 05/06/17 10:00 Urine Mucus Few /HPF 05/06/17 10:00
[2017-05-08] MEDS: VANCOMYCIN 1,500 MG in NACL 0.9% 500 ML 500 ML IV SCH (12:52)
[2017-05-08] MEDS: PRAVACHOL PO SCH (21:30)
[2017-05-08] MEDS: LANTUS SUB-Q SCH (21:55)
[2017-05-09] MEDS: VANCOMYCIN 1,500 MG in NACL 0.9% 500 ML 500 ML IV SCH ×3 (00:30→13:17)
[2017-05-09] MEDS: MORPHINE IV PRN ×4 (03:17→23:59)
[2017-05-09 06:20] LABS: Hematocrit 37.4 % (35.5-45.6); Hemoglobin 12.8 gm/dl (11.8-15.2); Mean Corpuscular HGB Conc 34 % (32-34); Mean Corpuscular Hemoglobin 29 pg (28-32); Mean Corpuscular Volume 84 fl (84-94); Platelet Count 372 K/mm3 (140-440); Red Blood Count 4.48 M/mm3 (3.65-5.03); Red Cell Distribution Width 13.7 % (13.2-15.2)
[2017-05-09 06:39] LABS: Calcium 8.6 mg/dL (8.4-10.2)
--- NOTE | 2017-05-09 09:03 | Consultation ---
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 Freed; admitted on 05/06/17 due to worsening drainage of right knee. Patient reports that 5 weeks after initial surgery he developed erythema, edema and tenderness of the right knee. By May 03, patient developed a greenish drainage and was admitted to [facility] where he was seen by ID Dr. Vasile Schmidt. Wound cultures were not obtained. He was started empirically on vancomycin IV and Zosyn IV and a PICC line was placed. Upon admission, initial temperature was 97.5, heart rate 92, respiration 12, O2 sat 96%, blood pressure 141/72. White count 6.8. Hemoglobin 13.8. Platelets 408. Creatinine 1. CRP 1.3. Urinalysis is negative. Patient was taken to the operating room on 05/06 and underwent open exploration with irrigation and debridement, there was a mild hematoma proximal to the medial tibia component that was removed. Microbiology: Blood cultures: 05/06 neg Wound cultures: surpeficial 05/06 neg OR wound 05/06 neg Current Antimicrobials: Zosyn 05/03 Vancomycin 05/03 Previous Antimicrobials: Past History Past Medical History: diabetes, other (right gluteal necrotizing fascitis, osteoarthritis ) Past Surgical History: cholecystectomy, Other (right gluteal I+D) Social history: no significant social history Family history: no significant family history Medications and Allergies Allergies Allergy/AdvReac Type Severity Reaction Status Date / Time codeine Allergy Unknown Verified 05/06/17 08:20 Home Medications Medication Instructions Recorded Confirmed Last Taken Type Fenofibrate 160 mg PO DAILY 05/29/16 05/07/17 05/05/17 History Pantoprazole Sodium 40 mg PO DAILY 05/29/16 05/07/17 05/05/17 History Pravastatin 10 mg PO DAILY 05/29/16 05/07/17 05/05/17 08:00 History metFORMIN 1,000 mg PO DAILY 04/08/17 03/17/18 03/15/18 History Acetaminophen/Codeine [Tylenol 1 tab PO Q6H PRN #15 tab 05/30/16 05/07/17 Unknown Rx /Codeine # 3 tab] Lisinopril [Prinivil] 10 mg PO DAILY 05/06/17 05/07/17 Unknown History Pioglitazone [Actos] 15 mg PO DAILY 05/06/17 05/07/17 Unknown History glipiZIDE [Glipizide] 10 mg PO BID 05/06/17 05/07/17 Unknown History Insulin Glargine,Hum.rec.anlog 50 unit SQ QHS 05/07/17 05/07/17 05/05/17 22:00 History [Lantus] Lispro Insulin [Humalog] 17 unit SQ AC 05/07/17 05/07/17 05/05/17 18:00 History Active Meds: Active Medications Aspirin (Ecotrin) 325 mg PO BID@0800,2000 [facility] Last Admin: 05/08/17 21:30 Dose: 325 mg Celecoxib (Celebrex) 200 mg PO BID [facility] Last Admin: 05/08/17 21:30 Dose: 200 mg Dextrose (D50w (25gm) Syringe) 50 ml IV PRN PRN PRN Reason: Hypoglycemia Piperacillin Sod/Tazobactam Sod (Zosyn/Ns 4.5gm/100ml) 4.5 gm in 100 mls @ 100 mls/hr IV Q8H [facility] Last Admin: 05/08/17 23:44 Dose: 100 mls/hr Vancomycin HCl 1,500 mg/ (Sodium Chloride) 515 mls @ 333.333 mls/hr IV Q12H [facility] Last Admin: 05/09/17 00:30 Dose: 333.333 mls/hr Insulin Glargine (Lantus) 50 units SUB-Q QHS [facility] Last Admin: 05/08/17 21:55 Dose: 50 units Insulin Human Lispro (Humalog) 0 unit SUB-Q [facility]; Protocol Last Admin: 05/08/17 21:55 Dose: 6 unit Morphine Sulfate (Morphine) 4 mg IV Q4H PRN PRN Reason: Pain , Severe (7-10) Last Admin: 05/09/17 03:17 Dose: 4 mg Pantoprazole Sodium (Protonix) 40 mg PO DAILY [facility] Last Admin: 03/18/18 09:54 Dose: 40 mg Pravastatin Sodium (Pravachol) 10 mg PO QHS [facility] Last Admin: 05/08/17 21:30 Dose: 10 mg Pregabalin (Lyrica) 75 mg PO BID [facility] Last Admin: 05/08/17 21:29 Dose: 75 mg Tramadol HCl (Ultram) 50 mg PO Q6H PRN PRN Reason: Pain, Moderate (4-6) Last Admin: 05/06/17 20:01 Dose: 50 mg Vancomycin HCl (Vancomycin Pharmacy To Dose) 1 each IV PKCONSULT [facility]; Protocol Review of Systems All systems: negative (as per HPI. Rest of 10 point review of systems negative) Physical Examination - Physical Exam Narrative exam: General appearance: Alert in NAD, conversant Eyes: anicteric sclerae, moist conjunctivae; no lid-lag; PERRLA HENT: Atraumatic; oropharynx clear OP Neck: Trachea midline; supple, no thyromegaly or lymphadenopathy Lungs: CTA, with normal respiratory effort and no intercostal retractions CV: RRR, no murmurs Abdomen: Soft, non-tender; no masses or hepatosplenomegaly Extremities: Right knee, with surgical dressings. Skin: Normal temperature, turgor and texture; no rash, ulcers or subcutaneous nodules Psych: Appropriate affect, alert and oriented to person, place and time. Neuro: alert and oriented x 3. Moving all extermities Lines: No CVL / PICC - Constitutional Vitals: Vital Signs Temp Pulse Resp BP Pulse Ox 98.7 F 80 22 135/69 98 05/09/17 08:32 05/09/17 08:32 05/09/17 08:32 05/09/17 08:32 05/09/17 08:32 Temperature -Last 24 Hours Temperature 98.7 F Temperature 98.1 F Temperature 97.6 F Results - Labs CBC & Chem 7: 05/09/17 06:00 05/09/17 06:00 Labs: Abnormal lab results 05/08/17 05/08/17 05/08/17 Range/Units 12:10 16:10 21:48 Sodium (137-145) mmol/L Chloride (98-107) mmol/L BUN (9-20) mg/dL Glucose (75-100) mg/dL POC Glucose 228 H 261 H 286 H (70-105) 05/09/17 05/09/17 Range/Units 06:00 06:59 Sodium 135 L (137-145) mmol/L Chloride 95.5 L (98-107) mmol/L BUN 21 H (9-20) mg/dL Glucose 179 H (75-100) mg/dL POC Glucose 221 H (70-105) Assessment and Plan Assessment: 1) Right total knee replacement infected: -Osteoarthritis status post right total knee replacement on 03/21/2017 at [facility] -Developed tenderness, erythema and edema by 04/25/17 -Developed greenish drainage by 05/03/17 - seen by ID Dr. Vasile Schmidt. Wound cultures were not obtained. He was started empirically on vancomycin IV and Zosyn IV and a PICC line was placed. -In view of worsening drainage, [facility], taken to the operating room on 05/06 and underwent open exploration with irrigation and debridement, there was a mild hematoma proximal to the medial tibia component that was removed. OR cultures negative -CRP=1.3 2) Diabetes, previous h/o DKA 3) Previous right gluteal necrotizing fascitis s/p extensive surgical debridement 4) Congenital right ear hearing loss with speech impediment 5) Hypertension Plan: -continue zosyn and vancomycin IV for now -f/u with ID Dr. Vasile Schmidt to determine duration / further management of IV abx Thank you for your consultation, will follow up with you. Shira Galeano MD Infectious Diseases Specialist [facility] ([facility]) [phone]
[2017-05-09] MEDS: PROTONIX PO SCH (10:40)
[2017-05-09] MEDS: ECOTRIN PO SCH ×2 (10:40→21:30)
[2017-05-09] MEDS: LYRICA PO SCH ×2 (10:40→21:30)
[2017-05-09] MEDS: ZOSYN/NS 4.5GM/100ML 4.5 GM/100 ML VIAL IV SCH ×3 (10:57→23:22)
[2017-05-09] MEDS: HumaLOG SUB-Q SCH ×4 (10:58→21:48)
[2017-05-09] MEDS ORDERED: CATHFLO IV ONE (11:00)
--- NOTE | 2017-05-09 12:20 | Progress Note ---
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 Freed to come here for surgery -Right knee septic arthritis s/p washout: continue iv vancomycin, surgical ctx -DM type 2: ssi, start diet -HTM: monitor closely, low salt diet Awaiting cultures, continue iv vancomycin with monitoring ID consulted Patient already has a picc line from outside hospital. Disposition: awaiting on wound culture results History Interval history: Patient was seen and examined. Follow-up on current diagnosis of right knee pains which has improved. Overnight uneventful. Patient denies any chest pain , shortness breath, nausea/vomiting or severe headaches. Imaging, nursing note , chart, labs and old chart reviewed. Discussed with patient. Hospitalist Physical - Physical exam Narrative exam: GEN: WDWN, NAD, AWAKE, ALERT, ORIENTATED 3 HEENT: NCAT, EOMI, PERRL, OP Clear NECK: supple, no adenopathy, no thyromegaly, no JVD CVS/HEART: RRR, NORMAL S1S2, pulses present bilaterally CHEST/LUNGS: CTA B, Symmetrical chest expansion, good air entry bilaterally GI/Abdomen: soft, NTND, good bowel sounds, no guarding or rebound /Bladder: no suprapubic tenderness, no CVA or paraspinal tenderness EXT/Skin: right knee surg dsg clean dry intact MSK: FROM x 3 except right leg in an immobilizer Neuro: CN 2-12 grossly intact, except hearing and speech, no new focal deficits Psych: calm - Constitutional Vitals: Temp Pulse Resp BP Pulse Ox 98.7 F 80 22 135/69 98 05/09/17 08:32 05/09/17 08:32 05/09/17 08:32 05/09/17 08:32 05/09/17 08:32 Results - Labs CBC & Chem 7: 05/09/17 06:00 05/09/17 06:00 Labs: Laboratory Last Values WBC 5.8 K/mm3 (4.5-11.0) 05/09/17 06:00 RBC 4.48 M/mm3 (3.65-5.03) 05/09/17 06:00 Hgb 12.8 gm/dl (11.8-15.2) 05/09/17 06:00 Hct 37.4 % (35.5-45.6) 05/09/17 06:00 MCV 84 fl (84-94) 05/09/17 06:00 MCH 29 pg (28-32) 05/09/17 06:00 MCHC 34 % (32-34) 05/09/17 06:00 RDW 13.7 % (13.2-15.2) 05/09/17 06:00 Plt Count 372 K/mm3 (140-440) 05/09/17 06:00 Lymph % (Auto) 27.5 % (13.4-35.0) 05/06/17 09:19 [place] % (Auto) 13.2 % (0.0-7.3) H 05/06/17 09:19 Eos % (Auto) 7.4 % (0.0-4.3) H 05/06/17 09:19 Baso % (Auto) 1.4 % (0.0-1.8) 05/06/17 09:19 Lymph # 1.9 K/mm3 (1.2-5.4) 05/06/17 09:19 [place] # 0.9 K/mm3 (0.0-0.8) H 05/06/17 09:19 Eos # 0.5 K/mm3 (0.0-0.4) H 05/06/17:19 Baso # 0.1 K/mm3 (0.0-0.1) 05/06/17 09:19 Seg Neutrophils % 50.5 % (40.0-70.0) 05/06/17 09:19 Seg Neutrophils # 3.4 K/mm3 (1.8-7.7) 05/06/17 09:19 ESR 47 mm/Hr (0-20) 05/06/17 09:19 PT 12.6 Sec. (12.2-14.9) 05/06/17 09:19 INR 0.90 (0.87-1.13) 05/06/17 09:19 APTT 32.6 Sec. (24.2-36.6) 03/16/18 09:19 VBG pH 7.395 (7.320-7.420) 05/06/17 09:19 Sodium 135 mmol/L (137-145) L 05/09/17 06:00 Potassium 4.3 mmol/L (3.6-5.0) 05/09/17 06:00 Chloride 95.5 mmol/L (98-107) L 05/09/17 06:00 Carbon Dioxide 26 mmol/L (22-30) 05/09/17 06:00 Anion Gap 18 mmol/L 05/09/17 06:00 BUN 21 mg/dL (9-20) H 05/09/17 06:00 Creatinine 1.3 mg/dL (0.8-1.5) 05/09/17 06:00 Estimated GFR 59 ml/min 05/09/17 06:00 BUN/Creatinine Ratio 16 % 05/09/17 06:00 Glucose 179 mg/dL (75-100) H 05/09/17 06:00 POC Glucose 221 (70-105) H 05/09/17 06:59 Ketones Quantitative Negative (Negative) 05/06/17 09:19 Lactic Acid 0.80 mmol/L (0.7-2.0) 05/06/17 09: Calcium 8.6 mg/dL (8.4-10.2) 05/09/17 06:00 Magnesium 1.90 mg/dL (1.7-2.3) 05/07/17 Unknown Total Bilirubin 0.30 mg/dL (0.1-1.2) 05/06/17 09:19 Direct Bilirubin < 0.2 mg/dL (0-0.2) 05/06/17 09:19 AST 20 units/L (5-40) 05/06/17: ALT 18 units/L (7-56) 05/06/17 09:19 Alkaline Phosphatase 66 units/L (35-129) 05/06/17 09:19 C-Reactive Protein 1.30 mg/dL (0.00-1.30) 05/06/17 09:19 Total Protein 7.6 g/dL (6.3-8.2) 05/06/17 09:19 Albumin 3.8 g/dL (3.9-5) L 03/16/18 09:19 Albumin/Globulin Ratio 1.0 % 05/06/17 09:19 Urine Color Yellow (Yellow) 05/06/17 10:00 Urine Turbidity Clear (Clear) 05/06/17 10:00 Urine pH 6.0 (5.0-7.0) 05/06/17 10:00 Ur Specific [place] 1.016 (1.003-1.030) 05/06/17 10:00 Urine Protein <15 mg/dl mg/dL (Negative) 05/06/17 10:00 Urine Glucose (UA) Neg mg/dL (Negative) 05/06/17 10:00 Urine Ketones Neg mg/dL (Negative) 05/06/17 10:00 Urine Blood Neg (Negative) 05/06/17 10:00 Urine Nitrite Neg (Negative) 05/06/17 10:00 Urine Bilirubin Neg (Negative) 05/06/17 10:00 Urine Urobilinogen < 2.0 mg/dL (<2.0) 05/06/17 10:00 Ur Leukocyte Esterase Neg (Negative) 05/06/17 10:00 Urine WBC (Auto) 1.0 /HPF (0.0-6.0) 05/06/17 10:00 Urine RBC (Auto) 1.0 /HPF (0.0-6.0) 05/06/17 10:00 Urine Mucus Few /HPF 05/06/17 10:00
[2017-05-09] MEDS ORDERED: CATHFLO ONE (18:49)
[2017-05-09] MEDS: PRAVACHOL PO SCH (21:31)
[2017-05-09] MEDS: LANTUS SUB-Q SCH (21:48)
[2017-05-10] MEDS: VANCOMYCIN 1,500 MG in NACL 0.9% 500 ML 500 ML IV SCH ×2 (00:01→12:09)
[2017-05-10] MEDS: MORPHINE IV PRN ×3 (05:56→19:16)
[2017-05-10] MEDS: PROTONIX PO SCH (09:43)
[2017-05-10] MEDS: LYRICA PO SCH ×2 (09:44→21:47)
[2017-05-10] MEDS: HumaLOG SUB-Q SCH ×4 (09:44→21:47)
[2017-05-10] MEDS: ECOTRIN PO SCH ×2 (09:44→21:46)
[2017-05-10] MEDS: ZOSYN/NS 4.5GM/100ML 4.5 GM/100 ML VIAL IV SCH ×3 (09:45→23:55)
--- NOTE | 2017-05-10 11:05 | Progress Note ---
Assessment and Plan Assessment: 1) Right total knee replacement infected: -Osteoarthritis status post right total knee replacement on 03/21/2017 at [facility] -Developed tenderness, erythema and edema by 04/25/17 -Developed greenish drainage by 05/03/17 - seen by ID Dr. Vasile Schmidt. Wound cultures were not obtained. He was started empirically on vancomycin IV and Zosyn IV and a PICC line was placed. -In view of worsening drainage, admitted to [facility] on 05/06, taken to the operating room on 05/06 and underwent open exploration with irrigation and debridement, there was a mild hematoma proximal to the medial tibia component that was removed. OR cultures 05/06 Coag neg Staph in broth ? real vs. contaminant -CRP=1.3 2) Diabetes, previous h/o DKA 3) Previous right gluteal necrotizing fascitis s/p extensive surgical debridement 4) Congenital right ear hearing loss with speech impediment 5) Hypertension Plan: -continue zosyn and vancomycin IV to go home as ordered by Dr Vasile Schmidt -f/u with ID Dr. 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 Shira Galeano MD Infectious Diseases Specialist [facility] ([facility]) M [phone] O [phone] Subjective Date of service: 05/10/17 Principal diagnosis: Right total knee replacement infected Interval history: Feels good, knee pain minimal, no fever. Microbiology: Blood cultures: 05/06 neg Wound cultures: surpeficial 05/06 neg OR wound 05/06 Coag neg Staph in broth Current Antimicrobials: Zosyn 05/03 Vancomycin 05/03 Previous Antimicrobials: Objective - Exam Narrative Exam: General appearance: Alert in NAD, conversant Eyes: anicteric sclerae, moist conjunctivae; no lid-lag; PERRLA HENT: Atraumatic; oropharynx clear OP Neck: Trachea midline; supple, no thyromegaly or lymphadenopathy Lungs: CTA, with normal respiratory effort and no intercostal retractions CV: RRR, no murmurs Abdomen: Soft, non-tender; no masses or hepatosplenomegaly Extremities: Right knee, with surgical dressings. Skin: Normal temperature, turgor and texture; no rash, ulcers or subcutaneous nodules Psych: Appropriate affect, alert and oriented to person, place and time. Neuro: alert and oriented x 3. Moving all extermities Lines: No CVL / PICC - Constitutional Vitals: Vital Signs Temp Pulse Resp BP Pulse Ox 98.4 F 73 22 120/58 98 05/10/17 08:28 05/10/17 08:28 05/10/17 08:28 05/10/17 08:28 05/10/17 08:28 Temperature -Last 24 Hours Temperature 98.4 F Temperature 98.6 F Temperature 98.6 F Temperature 97.5 F - Labs CBC & Chem 7: 05/09/17 06:00 05/09/17 06:00 Labs: Abnormal lab results 05/09/17 05/09/17 05/09/17 Range/Units 11:27 15:29 21:45 POC Glucose 241 H 259 H 238 H (70-105) 05/10/17 Range/Units 06:07 POC Glucose 270 H (70-105)
--- NOTE | 2017-05-10 14:39 | Progress Note ---
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 Freed to come here for surgery. S/p open exploration, irrigation, drainage and closure of wound on 05/06/17. OR cultures 05/06 Coag neg Staph in broth. Radiological data: Right Knee xry, CXR Hospitalist Physical GEN: WDWN, NAD, AWAKE, ALERT, ORIENTATED 3 HEENT: NCAT, EOMI, PERRL, OP Clear NECK: supple, no adenopathy, no thyromegaly, no JVD CVS/HEART: RRR, NORMAL S1S2, pulses present bilaterally CHEST/LUNGS: CTA B, Symmetrical chest expansion, good air entry bilaterally GI/Abdomen: soft, NTND, good bowel sounds, no guarding or rebound /Bladder: no suprapubic tenderness, no CVA or paraspinal tenderness EXT/Skin: right knee surg dsg clean dry intact MSK: FROM x 3 except right leg in an immobilizer Neuro: CN 2-12 grossly intact, except hearing and speech, no new focal deficits Psych: calm Subjective Date of service: 05/10/17 Principal diagnosis: Right total knee replacement infected Interval history: Patient was seen and examined. Overnight uneventful. Patient denies any chest pain, shortness breath, nausea/vomiting or severe headaches. Right knee pain under control. Imaging, nursing note, chart, labs and old chart reviewed. Discussed with patient and his . Objective - Constitutional Vitals: Vital Signs - 12hr 05/10/17 08:28 Temperature 98.4 F Pulse Rate 73 Respiratory 22 Rate Blood Pressure 120/58 O2 Sat by Pulse 98 Oximetry - Labs CBC & Chem 7: 05/09/17 06:00 05/11/17 05:29 Labs: Abnormal lab results 05/09/17 05/09/17 05/10/17 Range/Units 15:29 21:45 06:07 POC Glucose 259 H 238 H 270 H (70-105) 05/10/17 Range/Units 11:55 POC Glucose 239 H (70-105)
--- NOTE | 2017-05-10 17:30 | Progress Note ---
Subjective Date of service: 05/10/17 Principal diagnosis: Right knee wound drainage Interval history: patient sitting on bed side, doing well, diabetic poorly controlled under care of Hospitalist. Dressing dry knee dressing changed and Incision line looked CDI No drainage Calf Soft NT RIGHT KNEE- No significant effusion. very minimal as expecetd. No redness, [id number] has no pain as such in suprpatellar and Medial and lateral joint line arae. ROM of knee gives him discomfort and pain in the recenet incision area patient was informed about the surical cx RESULTS. They were also informed about the intraop findings of drainaing knee wound not commmunicating with the joint. Culture swab from quest show no growth. Also Knee culture from sx was discussed one of the result shows no growth and one of them shows possible contamination of coag negative. Knee aspirate from synovasure shows positive earnestine defensin and High Cell count. However the final cx results were not back and i had personally called the lab Patient and were informed about that Possibility of some knee joint infection discussed. His ESR AND CRP were WNL on the [facility] lab terst when he was admitted. His knee joint looked clinically benign . Intraop he had no intraarticular communication to the joint fromt he draining area. Had significant fibrous tissue and scar tissue in the proximal tibia which sealed the knee joint completely from the space in Proximal medial tibia. I had a lengthy disussion with the patient and his over the phone and went over all clinical, introp and lab test results from all locations, After listening to all risk benefit ratio and aletranative patient and family elecetd to wait and watch and see how he does with IV abx suggested by Dr. Vann, Spoke to Dr Vann as well and gave him synovasure test teslys and intraop findings. He recommened to continue IV ABx and wait and watch instaed of going in thr knee for possible explant. Patient and is aware of the possibility of knee explant in case of knee joint infection and posisble need of multiple surgery in the knee. Strict sugar control recommened. patient was offered an option for open explaoration of the knee just based on the synovasure test result but he decided to wait and watch and wants to wait for the final cx result. No gaurentee was expressed. Aware of risk of loosing limb and need of multiple surgery in the future, aware as well. Recommeded to see me tuesday for finalcx results discssion. recommened to see Dr Vann. Objective Vital signs: Vital Signs - 12hr 05/10/17 05/10/17 08:28 15:19 Temperature 98.4 F 98.4 F Pulse Rate 73 69 Respiratory 22 20 Rate Blood Pressure 120/58 114/68 O2 Sat by Pulse 98 95 Oximetry - Labs CBC & BMP: 05/09/17 06:00 05/09/17 06:00 Labs: Abnormal lab results 05/09/17 05/10/17 05/10/17 Range/Units 21:45 06:07 11:55 POC Glucose 238 H 270 H 239 H (70-105) 05/10/17 Range/Units 16:10 POC Glucose 189 H (70-105)
[2017-05-10] MEDS: PRAVACHOL PO SCH (21:46)
[2017-05-10] MEDS: LANTUS SUB-Q SCH (21:47)
[2017-05-11] MEDS: VANCOMYCIN 1,500 MG in NACL 0.9% 500 ML 500 ML IV SCH ×2 (00:35→13:14)
[2017-05-11] MEDS: MORPHINE IV PRN (04:57)
[2017-05-11 06:04] LABS: BUN/Creatinine Ratio 15; Blood Urea Nitrogen 15 mg/dL (9-20); Calcium 8.9 mg/dL (8.4-10.2); Hemolysis Index 2
[2017-05-11] MEDS: HumaLOG SUB-Q SCH ×2 (08:45→13:13)
[2017-05-11 08:55] VITALS: BP 117/66
[2017-05-11] MEDS: LYRICA PO SCH (10:50)
[2017-05-11] MEDS: ECOTRIN PO SCH (10:50)
[2017-05-11] MEDS: PROTONIX PO SCH (10:50)
[2017-05-11] MEDS: ZOSYN/NS 4.5GM/100ML 4.5 GM/100 ML VIAL IV SCH (10:51)
--- NOTE | 2017-05-11 13:20 | Discharge Summary ---
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 Freed to come here for surgery. S/p open exploration, irrigation, drainage and closure of wound on 05/06/17. OR cultures 05/06 Coag neg Staph in broth. He was recommended to continue iv vancomycin and zosyn at home per orthopedics recommendation. He was discharge home in stable condition. Discharge diagnosis and management: // Right knee septic arthritis s/p washout: - continue iv vancomycin and zosyn to complete regimen - follow wound care. f/u with orthopedic surgen outpt // DM type 2: - cont on long acting insulin, premeal insulin, ADA diet //HTN: monitor closely, low salt diet. Cont lisinopril home dose //HLD, cont statin // Diabetic neuropathy, cont lyrica // obesity, provided dietary recommendation Disposition: Home with HH for iv abx tomorrow Radiological data: Right Knee xry, CXR Hospitalist Physical GEN: WDWN, NAD, AWAKE, ALERT, ORIENTATED 3 HEENT: NCAT, EOMI, PERRL, OP Clear NECK: supple, no adenopathy, no thyromegaly, no JVD CVS/HEART: RRR, NORMAL S1S2, pulses present bilaterally CHEST/LUNGS: CTA B, Symmetrical chest expansion, good air entry bilaterally GI/Abdomen: soft, NTND, good bowel sounds, no guarding or rebound /Bladder: no suprapubic tenderness, no CVA or paraspinal tenderness EXT/Skin: right knee surg dsg clean dry intact MSK: FROM x 3 except right leg in an immobilizer Neuro: CN 2-12 grossly intact, except hearing and speech, no new focal deficits Psych: calm Disposition: [id number]/TX-06 HOME UNDER HOME [facility] Time spent for discharge: 32 minutes Core Measure Documentation - Palliative Care Palliative Care/ Comfort Measures: Not Applicable - Core Measures Any of the following diagnoses?: none Exam - Constitutional Vitals: Temp Pulse Resp BP Pulse Ox 98.4 F 66 20 117/66 98 05/11/17 07:45 05/11/17 07:45 05/11/17 07:45 05/11/17 07:45 05/11/17 07:45 Plan Activity: advance as tolerated Weight Bearing Status: Non-Weight Bearing Diet: diabetic Wound: per your surgeon's advice Follow up with: PRIMARY CARE, [Primary Care Provider] - 3-5 Days Prescriptions: Acetaminophen/Codeine [Tylenol /Codeine # 3 tab] 1 tab PO Q6H PRN #15 tab PRN Reason: Pain
[2017-05-11] MEDS ORDERED: HumuLIN R SUB-Q SCH (16:30)
== END 2017-05-11 15:45 | disposition home health service (06) | DRG 857 ==
LOC: ED 08:15 → OR 10:52 → 3A 11:15
PROVIDERS: ADMIT Internal Medicine; ATTEND Internal Medicine
PROC: 0JBP0ZZ Excision of Left Lower Leg Subcutaneous Tissue and Fascia, Open Approach (ICD-10-PCS; principal; 2017-05-06)
PROC: 0J9N3ZZ Drainage of Right Lower Leg Subcutaneous Tissue and Fascia, Percutaneous Approach (ICD-10-PCS; principal; 2017-05-06)
DX: T81.4XXA Infection following a procedure, initial encounter (principal); M00.9 Pyogenic arthritis, unspecified; L03.115 Cellulitis of right lower limb; Z68.41 Body mass index [BMI] 40.0-44.9, adult; L76.32 Postprocedural hematoma of skin and subcutaneous tissue following other procedure; E66.9 Obesity, unspecified; I10 Essential (primary) hypertension; Z96.651 Presence of right artificial knee joint; E78.5 Hyperlipidemia, unspecified; H90.41 Sensorineural hearing loss, unilateral, right ear, with unrestricted hearing on the contralateral side; E11.42 Type 2 diabetes mellitus with diabetic polyneuropathy; Z71.3 Dietary counseling and surveillance; Z88.5 Allergy status to narcotic agent; Z79.899 Other long term (current) drug therapy; Z79.1 Long term (current) use of non-steroidal anti-inflammatories (NSAID); Z79.2 Long term (current) use of antibiotics; Z90.49 Acquired absence of other specified parts of digestive tract; Y83.8 Other surgical procedures as the cause of abnormal reaction of the patient, or of later complication, without mention of misadventure at the time of the procedure; Y92.89 Other specified places as the place of occurrence of the external cause
CPT/HCPCS: 36415; 71045; 80048; 80074; 80202; 81001; 82010; 82140; 82805; 82962; 83735; 85025; 85027; 85610; 85652; 85730; 86140; 87040; 87075; 87076; 87116; 87186; 88305; 93005; 93010; 96360; 96361; A9270-GY; J1170; J1815; J2270; J2405; J2543; J2704; J2765; J2997; J3010; J3370; J7030; J7040